=== PATIENT | male | born 1995 | race Hispanic/Latino ===

== ENCOUNTER 2024-07-01 21:29 | Emergency (ER) | payer BC, SELFPAY ==
[2024-07-01 21:36] VITALS: BP 124/99; PULSE 83; RESP 14; TEMP 36.6; O2SAT 99
[2024-07-02 00:22] LABS: Basophils Absolute Auto 0.1 K/mm3 (0.0-0.1); Basophils Percent Auto 0.7 % (0.2-1.2); Eosinophils Absolute Auto 0.1 K/mm3 (0-0.3); Eosinophils Percent Auto 1.6 % (0-4.4); Hematocrit 44.4 % (42.0-52.0); Hemoglobin 16.1 g/dL (14.0-18.0); Immature Granulocyte Absolute 0.04 K/mm3 (0.00-0.031); Immature Granulocyte Percent A 0.5 % (0-0.5); Lymphocytes Absolute Auto 2.41 K/mm3 (0.9-3.2); Lymphocytes Percent Auto 27.1 % (18.3-44.2); Mean Corpuscular HGB Conc 36.3 g/dl (32-36); Mean Corpuscular Hemoglobin 30.1 pg (26-34); Mean Platelet Volume 9.6 fl (7.4-10.4); Monocytes Absolute Auto 0.7 K/mm3 (0.1-0.6); Monocytes Percent Auto 7.5 % (2.6-8.5); Neutrophils Absolute Auto 5.6 K/mm3 (1.3-6.7); Neutrophils Percent Auto 62.6 % (45.5-73.1); Platelet Count Result 246 k/mm3 (150-375); Red Blood Count 5.35 M/mm3 (4.6-6.20); Red Cell Distribution Width 12.4 % (11.5-14.5); White Blood Count 8.9 K/mm3 (4.5-10.0)
[2024-07-02 00:23] LABS: Add Urine Microscopic? NO; Appearance Urine Clear (Clear); Bilirubin Urine Negative (Negative); Blood Urine Negative (Negative); Color Urine Yellow (Yellow); Glucose Urine UA Negative (Negative); Ketones Urine Negative (Negative); Leukocyte Esterase Ur Negative LEU/UL (Negative); Nitrate Urine Negative (Negative); Protein Urine Negative (Negative); Specific Grav Ur 1.012 (1.001-1.035); Urobilinogen Urine 0.2 mg/dL (<2.0)
[2024-07-02 00:28] VITALS: BP 115/64; PULSE 69
[2024-07-02 00:29] VITALS: BP 127/75; PULSE 75
[2024-07-02 00:30] VITALS: BP 129/71; PULSE 73
--- NOTE | 2024-07-02 00:34 | ECG_ITS ---
Test Date: 2024-07-02 01:22:06 Measurements Intervals Purdy Rate: 61 P: 51 PA: 149 QRS: -5 QRSD: 86 T: 8 QT: 408 QTc: 413 Interpretive Statements SINUS RHYTHM EARLY PRECORDIAL R/S TRANSITION BORDERLINE T WAVE ABNORMALITY- INFERIOR LEADS BORDERLINE ECG No previous ECG available for comparison Electronically Signed On 07-02-2024 06:15:40 [employer] by Hi Benton D.O.
[2024-07-02 00:38] LABS: Alanine Aminotransferase 64 U/L (6-50); Albumin Level 4.9 g/dL (3.5-5.1); Alkaline Phosphatase 73 U/L (38-126); Anion Gap 10 mmol/L (4-12); Aspartate Amino Transferase 47 U/L (17-59); Bilirubin,Total 0.6 mg/dL (0.2-1.3); Blood Urea Nitrogen 12 mg/dL (9-20); Calcium 9.9 mg/dL (8.4-10.2); Carbon Dioxide 25 mmol/L (22-30); Chloride 103 mmol/L (98-107); Estimated CRCL calculation 207 ml/min; Estimated Glomerular Filt Rate > 60; Glucose 106 mg/dL (65-110); Magnesium 2.2 mg/dL (1.6-2.3); Potassium 4.3 mmol/L (3.4-5.0); Sodium 138 mmol/L (137-145)
--- NOTE | 2024-07-02 00:40 | ED_ITS ---
HPI - General Adult General Chief complaint: Unspecified Stated complaint: feeling lightheaded Time Seen by Provider: 07/01/24 23:25 Source: patient Mode of arrival: ambulatory Limitations: no limitations History of Present Illness HPI narrative: Patient is a 29 year old male who presents the ED with report of woozy sensation. Patient reports he has been feeling out of it and not like himself for the last 1 week. States he has felt intermittently lightheaded. Seems to be worse with sitting still. Reports intermittent headaches, some pain throughout his left-sided posterior neck. Feels as though he slept on this wrong. Has not taken anything for pain. States he has been stressed with work. Has also taken a new pre workout supplement. Denies chest pain, shortness breath, nausea, vomiting, vision changes, dizziness, focal weakness/numbness. Related Data Allergies Allergy/AdvReac Type Severity Reaction Status Date / Time No Known Allergies Allergy Verified 07/01/24 21:30 Review of Systems Review of Systems: All systems reviewed & are unremarkable except as noted in HPI. All systems reviewed & are unremarkable except as noted in HPI and below Exam Narrative: GENERAL: Well appearing, obese with BMI of 38.2, non-toxic, in no acute dis tress. HEAD: Normocephalic, atraumatic. NECK: Mild TTP in L lateral posterior neck into occipital region. No midline cervical spinal tenderness. No LAD. RESPIRATORY: Airway patent, respirations nonlabored. Clear to auscultation bilaterally, no rales, rhonchi, wheezing. CARDIOVASCULAR: Regular rate and rhythm without murmurs, rubs, or gallops. MUSCULOSKELETAL: Moves all extremities. No gross deformities. SKIN: Warm, dry, normal color. NEURO: A&O X3. Speech clear. Cranial nerves II-XII grossly intact. Steady gait. No ataxic movements. No focal deficits. PSYCHIATRIC: Appropriate mood and affect. Normal interaction. Course Vital Signs Vital signs: Vital Signs Temperature 98 F 07/01/24 21:36 Pulse Rate 83 07/01/24 21:36 Respiratory Rate 14 07/01/24 21:36 Blood Pressure 124/99 H 07/01/24 21:36 Pulse Oximetry 99 07/01/24 21:36 Temperature 98 F 07/01/24 21:36 Pulse Rate 66 07/02/24 02:30 Respiratory Rate 14 07/02/24 02:30 Blood Pressure 127/63 07/02/24 02:30 Pulse Oximetry 100 07/02/24 02:30 Medical Decision Making MDM Narrative Medical decision making narrative: Patient presented to ED with 1 week history of woozy sensation, out of it , mild lightheadedness. Vital signs are stable upon arrival. No significant orthostatic hypotension. Heart rate did increase slightly. Patient in no acute distress. Reproducible tenderness throughout left-sided cervical region, consistent with cervical strain. Patient neurovascularly intact. No focal deficits on exam. No neurologic complaints reported by patient. Laboratory studies are unremarkable. Stable electrolytes. UA clear. EKG nonischemic. Patient feeling better after fluids. Neck pain is significantly improved after Toradol and Tylenol. He had not taken anything prior to arrival. Suspicious for musculoskeletal etiology. Will prescribe short course of Flexeril for home. Advised patient to stay well hydrated. Recommended follow-up with PCP for further evaluation. Given strict return precautions. He agrees with plan. Discharged in stable condition. Medical Records Medical records reviewed: Yes I reviewed the external patient's medical records. Vital Signs Vital Signs: Vital Signs Temperature 98 F 07/01/24 21:36 Pulse Rate 83 07/01/24 21:36 Respiratory Rate 14 07/01/24 21:36 Blood Pressure 124/99 H 07/01/24 21:36 Pulse Oximetry 99 07/01/24 21:36 Temperature 98 F 07/01/24 21:36 Pulse Rate 66 07/02/24 02:30 Respiratory Rate 14 07/02/24 02:30 Blood Pressure 127/63 07/02/24 02:30 Pulse Oximetry 100 07/02/24 02:30 Lab Data Lab results reviewed: Yes I reviewed the patient's lab results. 07/02/24 00:17 07/02/24 00:17 Labs: Lab Results 07/02/24 Range/Units 00:17 WBC 8.9 (4.5-10.0) K/mm3 RBC 5.35 (4.6-6.20) M/mm3 Hgb 16.1 (14.0-18.0) g/dL Hct 44.4 (42.0-52.0) % MCV 83.0 (80-100) fl MCH 30.1 (26-34) pg MCHC 36.3 H (32-36) g/dl RDW 12.4 (11.5-14.5) % Plt Count 246 (150-375) k/mm3 MPV 9.6 (7.4-10.4) fl Immature Gran % (Auto) 0.5 (0-0.5) % Neut % (Auto) 62.6 (45.5-73.1) % Lymph % (Auto) 27.1 (18.3-44.2) % [place] % (Auto) 7.5 (2.6-8.5) % Eos % (Auto) 1.6 (0-4.4) % Baso % (Auto) 0.7 (0.2-1.2) % Lymph # (Auto) 2.41 (0.9-3.2) K/mm3 [place] # (Auto) 0.7 H (0.1-0.6) K/mm3 Eos # (Auto) 0.1 (0-0.3) K/mm3 Baso # (Auto) 0.1 (0.0-0.1) K/mm3 Abs Immat Gran (auto) 0.04 H (0.00-0.031) K/mm3 Absolute Neuts (auto) 5.6 (1.3-6.7) K/mm3 Absolute Nucleated RBC 0.000 (0.0-0.012) K/mm3 Nucleated RBC % 0.0 (0.0-0.2) % Sodium 138 (137-145) mmol/L Potassium 4.3 (3.4-5.0) mmol/L Chloride 103 (98-107) mmol/L Carbon Dioxide 25 (22-30) mmol/L Anion Gap 10 (4-12) mmol/L BUN 12 (9-20) mg/dL Creatinine 0.60 L (0.7-1.3) mg/dL Estim Creat Clear Calc 207 ml/min Estimated GFR > 60 (59 - ) Glucose 106 (65-110) mg/dL Calcium 9.9 (8.4-10.2) mg/dL Magnesium 2.2 (1.6-2.3) mg/dL Total Bilirubin 0.6 (0.2-1.3) mg/dL AST 47 (17-59) U/L ALT 64 H (6-50) U/L Alkaline Phosphatase 73 (38-126) U/L Total Protein 8.0 (6.3-8.2) g/dL Albumin 4.9 (3.5-5.1) g/dL Urine Color Yellow (Yellow) Urine Appearance Clear (Clear) Urine pH 6.0 (5.0-9.0) Ur Specific [place] 1.012 (1.001-1.035) Urine Protein Negative (Negative) mg/dL Urine Glucose (UA) Negative (Negative) mg/dL Urine Ketones Negative (Negative) mg/dL Ur Blood (Man) Negative (Negative) Urine Nitrate Negative (Negative) Urine Bilirubin Negative (Negative) Urine Urobilinogen 0.2 (<2.0) mg/dL Leukocyte Esterase Rfl Negative (Negative) LELE/UL ECG Data EKG #1: Attestation: I personally reviewed and interpreted this ECG as follows: ECG completion date: 07/02/24 ECG completion time: 01:22 EKG Interpretation: normal rate (61), sinus rhythm and no ST changes Discharge Plan Discharge Clinical Impression: Lightheadedness Patient Disposition: Home, Self-Care Condition: Stable Instructions: Antibiotic Form, Cervical Strain (ED), Near Syncope (ED), Lightheadedness (ED) Additional Instructions: Rest and stay well hydrated. Drink plenty of fluids. Recommend electrolyte rich fluids, Gatorade, Pedialyte, body armor. Recommend follow-up with PCP for further evaluation. Return to ED if you experience worsening or severe symptoms, passing out, severe pain, unable to keep down food or drink, numbness or weakness of arm or leg, vision changes, chest pain, or any other symptoms of concern. Recommend Tylenol and ibuprofen as needed for further pain. Take muscle relaxers as needed and prescribed. Recommend taking these at night as they may cause sedation. Do not drive, operate heavy machinery, drink alcohol while on muscle relaxers as this may cause further sedation. Prescriptions: New cyclobenzaprine 5 mg tablet 5 mg PO TID PRN (Reason: muscle spasm) Qty: 5 0RF Follow-up/Referrals: Mario Piedra MD [Physician] - (PRIMARY CARE) PHYSICIAN,[employer] [Primary Care Provider] - Time of Disposition: 01:51
[2024-07-02] MEDS: ACETAMINOPHEN 500 MG TABLET 1000 MG PO (00:42)
[2024-07-02] MEDS: SODIUM CHLORIDE 0.9% IV 1,000 ML 999 ML IV CONT (00:43)
[2024-07-02 00:48] VITALS: BP 129/71; PULSE 73; RESP 15; O2SAT 98
[2024-07-02] MEDS: KETOROLAC 30 MG/ML VIAL (*BKC) IV PUSH (01:16)
[2024-07-02 01:48] VITALS: BP 126/70; PULSE 64; RESP 14; O2SAT 99
[2024-07-02 02:30] VITALS: BP 127/63; PULSE 66; RESP 14; O2SAT 100
== END 2024-07-02 02:32 | disposition home or self-care (01) ==
PROVIDERS: Emergency Provider Physician Assistant
DX: R42 Dizziness and giddiness (principal); R94.31 Abnormal electrocardiogram [ECG] [EKG]
CPT/HCPCS: 36415; 80053; 81003; 83735; 85025; 93005; 96361; 96374; 99284; A9270; J1885; J7030